=== PATIENT | male | born 1960 | race Caucasian/White ===

== ENCOUNTER 2019-04-15 04:53 | Inpatient (IN) ==
[2019-04-15] MEDS ORDERED: 0.9 % Sodium Chloride 1,000 ML ONE ×2 (05:03→05:05)
[2019-04-15] MEDS ORDERED: Heparin 1,000 UNITS/500 mL 500 ML ONE (05:03)
[2019-04-15] MEDS ORDERED: *HR* Heparin 10,000 UNIT/10 ML VIAL ONE (05:04)
[2019-04-15] MEDS ORDERED: ISOVUE-370 200 ML INFUS..BTL ONE ×4 (05:04→06:52)
[2019-04-15] MEDS ORDERED: Nitroglycerin 1,000 MCG/10 ML VIAL IV ONE (05:04)
[2019-04-15] MEDS ORDERED: *HR* Midazolam HCl 2 MG/2 ML VIAL ONE (05:20)
[2019-04-15] MEDS ORDERED: *HR* FentaNYL (PF) 100 MCG/2 ML VIAL ONE (05:20)
[2019-04-15] MEDS ORDERED: Tirofiban 12.5 MG/250ML 12.5 MG/250 ML BAG ONE (05:22)
--- NOTE | 2019-04-15 05:29 | Pre-Sedation Evaluation ---
Pre-sedation evaluation - Pre-sedation checklist Date of procedure: 04/15/19 Procedure: [facility] ASA Classification *see protocol: CLASS II-Mild systemic disease Cardiac Registry (Cardio Only) - Functional Capacity Functional Capacity: < 4 METS - Clincal Frailty Scale Clinical Frailty Scale: Vulnerable
--- NOTE | 2019-04-15 07:27 | Cardiology History & Physical ---
Date of Encounter: 04/15/19 Time of Encounter: 07:24 Assessment and Plan (1) ST elevation myocardial infarction (STEMI) of inferior wall Status: Acute The assessment and plan as outlined above was discussed with the patient and/or family members who expressed understanding and agreement. All questions were answered. Emergent LHC , ACS meds administered at [place] [facility], transferred directly to [facility] Cathlab. R/B/A d/w patient and he agrees to proceed with C History of Present Illness Chief complaint: Chest Pain HPI: Mr. Mora is a 58 year old male smoker with no significant CRF's here for Chest Pain started RSCP at 4 am ongoing unrelenting associated with SOB presented to [place] [facility] found to have Inferior STEMI transferred for emergent LHC. Full history not obtainable as patient brought to cathlab emergently with ongoing chest pain. R/B/A d/w patient and he agrees to proceed. ACS IV meds started at [place] Past Med Surg Social Fam HX - Past Medical History Medical history: no medical history Psychiatric history: no psych history - Social History Smoking Status: Current every day smoker Smokeless Tobacco Status: No Alcohol use: none Drug use: none Medications and Allergies No Known Home Drugs 04/15/19 [History] Allergy/AdvReac Type Severity Reaction Status Date / Time Penicillins [PCN] Allergy Hives Verified 04/15/19 05:05 All Systems Review: The remainder of the systems were reviewed and are negative Physical Examination General: Conversant, No Apparent Distress HEENT: Atraumatic, Normocephaly, Mucus Membranes Moist Neck: No JVD, Normal carotid pulses Cardiac: Reg Rate and Rhythm, Normal S1 and S2, No Murmur Lungs: Normal Breath Sounds, No Wheeze, Rales, Rhonchi Neuro: Alert and responsive, No focal deficits noted Abdomen: Soft, Non-Tender Skin: No rashes noted on visualized skin Musculoskeletal: No Chest Wall Tenderness Extremities: No Clubbing, No Cyanosis, No Edema, Normal Pulses
[2019-04-15] MEDS ORDERED: Tirofiban 12.5 MG/250ML 12.5 MG/250 ML BAG IVC SCH (07:30)
--- NOTE | 2019-04-15 07:47 | Invasive Diagnostic Lab Proc ---
Name: Rupal Mora Date of Study: 04/15/2019 Date: 1960 Ht: 70.1in Medical Record#: [id number] Age: 58 Wt: 224.87lb Gender: Male BSA: 2.2 Order #: [id number] BMI: 32.19 Physicians Procedure Physician: Patricia Robertson MD Referring MD: Referring MD: Staff Name Position Time In Jenaro Moy RN Monitor 05:33 AM Melinda Hilton RT (R) Scrub 05:33 AM Lanette Adam RT (R) Scrub 05:33 AM Nirmala Gutiérrez RN Porcelain Enamel Repairer 05:33 AM Indications Indication STEMI Procedures Performed Procedure L HRT ARTERY/VENTRICLE ANGIO PRQ CARD REVASC MO 1 VSL Pre-Procedure Checklist Pt not NPO for procedure and MD aware. Plan of Care Patient will tolerate the procedure without complications. Adequate level of comfort will be maintained. Hemodynamics will remain stable Patient will recover from procedure without complications. Respiratory function will be maintained. Cardiac rhythm will remain stable. Patient temperature will be maintained. Patient and/or family have verbalized understanding of the procedure. Patient Education Allergies Penicillins Vital Signs Time BP (mmHg) HR (bpm) O2 Sat. RR (bpm) LOC 05:34 AM / % 5 = Fully awake and oriented or at pre-proc level 05:34 AM / % 4 = Oriented but drowsy 05:49 AM / % 4 = Oriented but drowsy 06:04 AM / % 4 = Oriented but drowsy 06:19 AM / % 4 = Oriented but drowsy 06:35 AM / % 4 = Oriented but drowsy 05:32 AM 135 / 99 78 99 % 46 05:37 AM 146 / 85 76 98 % 18 05:42 AM 144 / 75 67 95 % 10 05:47 AM 143 / 93 76 95 % 16 05:52 AM 141 / 93 78 95 % 14 05:57 AM 147 / 90 80 96 % 15 06:02 AM 149 / 91 73 96 % 13 06:07 AM 143 / 89 71 96 % 15 06:12 AM 149 / 98 73 96 % 16 06:17 AM 149 / 98 75 96 % 16 06:22 AM 84 / 58 73 99 % 12 06:28 AM 74 / 49 70 98 % 12 06:33 AM 122 / 78 68 96 % 13 06:37 AM 95 / 69 63 94 % 15 06:42 AM 100 / 54 72 95 % 18 06:47 AM 102 / 63 65 94 % 15 06:52 AM 101 / 57 68 94 % 13 06:57 AM 100 / 65 68 95 % 12 07:02 AM 110 / 68 68 95 % 16 Procedural Medications Time Medication Dose Units Method Given By 05:34 AM Oxygen 2 L/min nasal cannula Nirmala Gutiérrez RN 05:34 AM Versed 1 mg Intravenous Nirmala Gutiérrez RN 05:34 AM Fentanyl 50 mcg Intravenous Nirmala Gutiérrez RN 05:36 AM Lidocaine 2% 18 ml Subcutaneous DrLarry Mousserica 05:43 AM Aggrastat Bolus: 50 ml Intravenous DecNirmala michel RN 05:43 AM Aggrastat 12.5mg/250ml 18 ml Intravenous Nirmala Gutiérrez RN 06:22 AM Atropine 0.25 mg Intravenous Nirmala Gutiérrez RN 06:39 AM Heparin 1000 units Intravenous Nirmala Gutiérrez RN 06:39 AM Nitroglycerin 200 mcg Intracoronary Bee Robertson MD 06:42 AM Nitroglycerin 150 mcg Intracoronary Bee Robertson MD 06:48 AM Nitroglycerin 200 mcg Intracoronary JaimeussBee maldonado MD 07:05 AM Versed 1 mg Intravenous Nirmala Gutiérrez RN 07:05 AM Fentanyl 50 mcg Intravenous Nirmala Gutiérrez RN ASA Classification: CLASS II- Mild systemic disease (i.e. well-controlled diabetes, hypertension, asthma, cigarette smoking) Emergent Procedure: ASA score is assumed Karla Score Preprocedure Postprocedure Activity 2- Moves 4 extremities sustained head lift Activity 2- Moves 4 extremities sustained head lift Circulation 2- SBP +/= 20 points of pre-anesthetic level Circulation 2- SBP +/= 20 points of pre-anesthetic level Consciousness 2- Awake and alert oriented x 3 Consciousness 2- Awake and alert oriented x 3 O2 Saturation 2- Able to maintain O2 satruation of 92% on room air O2 Saturation 2- Able to maintain O2 satruation of 92% on room air Respiratory 2- Able to deep breathe and cough well Respiratory 2- Able to deep breathe and cough well Total Score 10 Total Score 10 Contrast Agent: Isovue Diagnostic Contrast: 350 ml Total Contrast: 350 ml Fluoro Dose: 180 mGy Activated Clotting Time Time Seconds to Clot 05:45 AM 237 Procedure Log Time Note Enter By 05:22 AM STEMI from Jose Manuel GRACE cedwards 05:32 AM Vitals capture started with the following parameters, Patient=Adult, Interval=5 min, Initial Urpubsgr=512 mmHg, Deflation Rate=5 mmHg, Cuff placed on Left Arm 05:32 AM CathStat 05:32 AM Recorded ECG: HR=85 Condition=Condition 1 05:32 AM HR=78 bpm, ARTA=316/99 mmhg, SpO2=99 %, Resp=46 B/min 05:33 AM 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 cedwards 05:33 AM Hair removed from procedure site in procedure lab using clippers. Bilateral groin prepped with Chloraprep by Nirmala Gutiérrez RN, then patient was draped. Skin intact. cedwards 05:33 AM Physician arrived 05:33 cedwards 05:33 AM ASA Class CLASS II- Mild systemic disease (i.e. well-controlled diabetes, hypertension, asthma, cigarette smoking) cedwards 05:33 AM Kerri completed cedwards 05:34 AM Procedure start 05:34 cedwards 05:34 AM Time: 05:34 Oxygen on at 2 L/min per nasal cannula by Nirmala Gutiérrez RN cedwards 05:34 AM Time: 05:34 Versed 1 mg Intravenous Given by Nirmala Gutiérrez RN cedwards :34 AM Time: 05:34 Fentanyl 50 mcg Intravenous Given by Nirmala Gutiérrez RN cedwards 05:34 AM Time: 05:34 Patient comfortable and pain free: Yes cedwards 05:34 AM Time: 05:34LOC: 5 = Fully awake and oriented or at pre-proc level cedwards 05:34 AM Clinical Presentation: STEMI or equivalent cedwards 05:34 AM Time out was performed according to hospital policy. Conscious sedation and anesthesia was achieved (see medication log with in this report above) cedwards 05:35 AM Patient with 4 out of 10 chest pain cedwards 05:37 AM Time: 05:36 18 ml Lidocaine 2% to right groin Subcutaneous Given by Dr. Robertson cedwards 05:37 AM Micro-Introducer Kit utilized for sheath placement cedwards 05:37 AM HR=76 bpm, XOOM=718/85 mmhg, SpO2=98.0 %, Resp=18 B/min 05:38 AM Access obtained by percutaneous puncture. 6Fr 10cm Terumo [place] sheath placed in right Femoral artery. [id number] cedwards 05:39 AM 5Fr FL 4 catheter inserted over the wire [facility] cedwards 05:39 AM 0.035 145cm Navilyst 3mmJ wire [id number] cedwards 05:40 AM Recorded Pressure: Ao, HR=75, Condition=Condition 1 (Aorta) Ao 138/84/108 05:40 AM LCA angiography performed in multiple views. cedwards 05:41 AM Catheter removed cedwards 05:41 AM 6Fr JR 4 Runway guide catheter was used to cannulate the PCI vessel successfully. reused? No cedwards 05:41 AM Inflation device was opened. cedwards 05:42 AM RCA angiography performed in multiple views. cedwards 05:42 AM Recorded Pressure: Ao, HR=71, Condition=Condition 1 (Aorta) Ao 144/84/110 05:42 AM HR=67 bpm, RQFI=160/75 mmhg, SpO2=95.0 %, Resp=10 B/min 05:43 AM Time: 05:43 Aggrastat Bolus: 50 ml Intravenous Given by Nirmala Gutiérrez RN Acosta pump cedwards 05:43 AM Time: 05:43 Aggrastat 12.5mg/250ml 18 ml Intravenous Given by Nirmala Gutiérrez RN Acosta pump cedwards 05:44 AM .014 [employer] 190cm guide wire across target lesion- successful. reused? No cedwards 05:44 AM Lesion found in Mid RCA. Pre Stenosis: 100 Pre ALL Flow: 0: No Flow/No perfusion cedwards 05:45 AM At 05:45 the ACT was 237 seconds. cedwards 05:45 AM 2.0 mm x 12 mm Emerge Monorail balloon across target lesion- successful. reused? No cedwards 05:47 AM HR=76 bpm, GTGC=416/93 mmhg, SpO2=95.0 %, Resp=16 B/min 05:49 AM Time: 05:34 Patient comfortable and pain free: No cedwards 05:49 AM Time: 05:34LOC: 4 = Oriented but drowsy cedwards 05:52 AM HR=78 bpm, GVXH=532/93 mmhg, SpO2=95.0 %, Resp=14 B/min 05:53 AM Recorded Pressure: Ao, HR=79, Condition=Condition 1 (Aorta) Ao 142/87/113 05:53 AM Balloon catheter removed intact. unable to advance cedwards 05:53 AM Guide wire removed intact. unable to advance cedwards 05:53 AM .014 Healthcare Facility Administrator 50 190cm guide wire across target lesion- successful. reused? No cedwards 05:57 AM HR=80 bpm, WSIK=028/90 mmhg, SpO2=96.0 %, Resp=15 B/min 06:01 AM Turnpike LP Catheter advanced cedwards 06:01 AM Recorded Pressure: Ao, HR=75, Condition=Condition 1 (Aorta) Ao 140/88/111 06:02 AM HR=73 bpm, OEZJ=535/91 mmhg, SpO2=96.0 %, Resp=13 B/min 06:03 AM Guide wire removed intact. unable to cross cedwards 06:04 AM .014 Whisper 300cm guide wire across target lesion- successful. reused? No cedwards 06:04 AM Recorded Pressure: Ao, HR=74, Condition=Condition 1 (Aorta) Ao 141/90/112 06:04 AM Time: 05:49LOC: 4 = Oriented but drowsy cedwards 06:04 AM Time: 05:49 Patient comfortable and pain free: No cedwards 06:07 AM HR=71 bpm, PHTI=720/89 mmhg, SpO2=96.0 %, Resp=15 B/min 06:09 AM Recorded Pressure: Ao, HR=74, Condition=Condition 1 (Aorta) Ao 140/89/112 06:12 AM HR=73 bpm, DCTV=198/98 mmhg, SpO2=96.0 %, Resp=16 B/min 06:12 AM Recorded Pressure: Ao, HR=76, Condition=Condition 1 (Aorta) Ao 142/90/113 06:14 AM Recorded ECG: HR=76 Condition=Condition 1 06:15 AM Chest pain rated at a 4, states just uncomfortable. cedwards 06:17 AM HR=75 bpm, ENVA=723/98 mmhg, SpO2=96.0 %, Resp=16 B/min 06:18 AM 2.0 mm x 12 mm Emerge Monorail balloon across target lesion- successful. reused? Yes cedwards 06:19 AM Recorded Pressure: Ao, HR=75, Condition=Condition 1 (Aorta) Ao 144/90/113 06:19 AM Time: 06:04 Patient comfortable and pain free: No cedwards 06:19 AM Time: 06:04LOC: 4 = Oriented but drowsy cedwards 06:20 AM Balloon inflated @ 6 andi for 6 seconds cedwards 06:20 AM Balloon inflated @ 6 andi for 6 seconds cedwards 06:21 AM Balloon inflated @ 6 andi for 14 seconds cedwards 06:21 AM Balloon inflated @ 8 andi for 9 seconds cedwards 06:22 AM HR=73 bpm, NIBP=84/58 mmhg, SpO2=99.0 %, Resp=12 B/min 06:23 AM Time: 06:22 Atropine 0.25 mg Intravenous Given by Nirmala Gutiérrez RN cedwards 06:25 AM 3.0mm x 16mm Synergy drug-eluting stent across target lesion- successful Lot #[id number] cedwards 06:27 AM Stent deployed @ 9 andi for 6 seconds cedwards 06:27 AM Stent balloon reinflated @ 14 andi for 10 seconds cedwards 06:28 AM HR=70 bpm, NIBP=74/49 mmhg, SpO2=98.0 %, Resp=12 B/min 06:28 AM Stent delivery system removed intact. cedwards 06:29 AM Recorded Pressure: Ao, HR=81, Condition=Condition 1 (Aorta) Ao 85/64/72 06:30 AM Lesion found in Proximal RCA. Pre Stenosis: 70 Pre ALL Flow: 3: Complete and Brisk Flow/Perfusion cedwards 06:30 AM 3.5mm x 20mm Synergy drug-eluting stent across target lesion- successful Lot #[id number] cedwards 06:32 AM Recorded Pressure: Ao, HR=67, Condition=Condition 1 (Aorta) Ao 112/71/89 06:33 AM HR=68 bpm, NBCM=228/78 mmhg, SpO2=96.0 %, Resp=13 B/min 06:34 AM Recorded Pressure: Ao, HR=66, Condition=Condition 1 (Aorta) Ao 117/67/90 06:35 AM Time: 06:19LOC: 4 = Oriented but drowsy cedwards 06:35 AM Time: 06:19 Patient comfortable and pain free: Yes cedwards 06:37 AM HR=63 bpm, NIBP=95/69 mmhg, SpO2=94.0 %, Resp=15 B/min 06:37 AM Stent deployed @ 9 andi for 10 seconds cedwards 06:38 AM Stent balloon reinflated @ 14 andi for 6 seconds cedwards 06:38 AM Recorded Pressure: Ao, HR=64, Condition=Condition 1 (Aorta) Ao 82/51/65 06:39 AM Stent delivery system removed intact. cedwards 06:39 AM Time: 06:39 Heparin 1000 units Intravenous Given by Nirmala Gutiérrez RN cedwards 06:40 AM Time: 06:39 Nitroglycerin 200 mcg Intracoronary Given by eBe Robertson MD cedwards 06:41 AM Guide wire removed intact. cedwards 06:42 AM Time: 06:42 Nitroglycerin 150 mcg Intracoronary Given by Bee Robertson MD cedwards 06:42 AM HR=72 bpm, BCQA=709/54 mmhg, SpO2=95.0 %, Resp=18 B/min 06:42 AM Recorded Pressure: Ao, HR=75, Condition=Condition 1 (Aorta) Ao 68/47/55 06:45 AM Patient with minor chest pain rated at a 4. cedwards 06:46 AM Recorded ECG: HR=68 Condition=Condition 1 06:47 AM HR=65 bpm, OKBQ=734/63 mmhg, SpO2=94.0 %, Resp=15 B/min 06:48 AM Time: 06:48 Nitroglycerin 200 mcg Intracoronary Given by Bee Robertson MD cedwards 06:50 AM Time: 06:35 Patient comfortable and pain free: No cedwards 06:50 AM Time: 06:35LOC: 4 = Oriented but drowsy cedwards 06:50 AM .014 [employer] 190cm guide wire across target lesion- successful. reused? No cedwards 06:51 AM Lesion found in Right PDA. Pre Stenosis: 70 Pre ALL Flow: 3: Complete and Brisk Flow/Perfusion cedwards 06:52 AM HR=68 bpm, SFRU=191/57 mmhg, SpO2=94.0 %, Resp=13 B/min 06:53 AM 2.0 mm x 8 mm Emerge Monorail balloon across target lesion- successful. reused? No cedwards 06:57 AM Balloon catheter removed intact. undeployed cedwards 06:57 AM HR=68 bpm, LRBL=725/65 mmhg, SpO2=95.0 %, Resp=12 B/min 06:58 AM Recorded Pressure: Ao, HR=62, Condition=Condition 1 (Aorta) Ao 84/57/69 07:00 AM Guide catheter removed intact. cedwards 07:00 AM Recorded Pressure: LV, HR=77, Condition=Condition 1 (Left Ventricle) LV 89/5/9 07:00 AM 5Fr Pigtail catheter inserted over the wire [facility] cedwards 07:00 AM Catheter crossed the aortic valve and was selectively placed in the left ventricle. Pressures recorded on pullback for left heart catheterization. cedwards 07:01 AM Recorded Pressure: LV, Ao, HR=70, Condition=Condition 1 (Left Ventricle) LV 88/-1/10, (Aorta) Ao 96/62/77 07:01 AM Bolus angiogram of Left Ventricle complete, hand injection cedwards 07:02 AM Catheter removed cedwards 07:02 AM HR=68 bpm, GPAM=824/68 mmhg, SpO2=95 %, Resp=16 B/min 07:05 AM Time: 07:05 Versed 1 mg Intravenous Given [facility] 07:05 AM Time: 07:05 Fentanyl 50 mcg Intravenous Given by Nirmala Gutiérrez RN cedwards 07:12 AM Coronary Dominance: right cedwards 07:13 AM Procedure completed at 07:13 04/15/2019 cedwards 07:13 AM Did you address ALL flow and Dominance? YesCoronary Dominance: right cedwards 07:15 AM Sign out completed: Radiation Dose 1499.56 mGy, 180 Gy/cm2 Fluoro Time: 39.4 Isovue 370 - 200ml contrast 350 ml given by Patricia Robertson MD. Complications: None. 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 Sedation minutes 90. Cardiac Rehab Consult needed: Yes. Confirmed administered medications: Yes cedwards 07:16 AM Isovue 370 - 200ml,3 Bottle(s) used. cedwards 07:16 AM Arterial sheath pulled, Angio-seal closure device used and was Successful [id number] S/N. cedwards 07:16 AM Estimated Blood Loss: minimal cedwards 07:16 AM Post ECG NSR cedwards 07:16 AM Post Blood Pressure 93/58 cedwards 07:16 AM Information taught Cardiac Cath, PCI, and Angioseal cedwards 07:17 AM Education needs Procedure, Plan of Care, and Disease Process cedwards 07:17 AM Learning barriers :None cedwards 07:17 AM Education Methods Verbal cedwards 07:17 AM Education evaluation Able to repeat information cedwards 07:17 AM Site status No bleeding/hematoma - Rt Groin as reported by Sites, Lanette RT (R) at 07:17 cedwards 07:17 AM Opsite applied cedwards 07:17 AM Family placed in consult room. cedwards 07:17 AM Complications: None cedwards 07:23 AM Report given to Shy LOPEZ Pt taken to ICU Room #9. 07:23 cedwards 07:27 AM Patient out of room: 07:25 cedwards 07:29 AM Lesion found in Proximal LAD. Pre Stenosis: 40 Pre ALL Flow: cedwards 07:29 AM Lesion found in Mid LAD. Pre Stenosis: 80 Pre ALL Flow: cedwards 07:30 AM Lesion found in 1st Marginal. Pre Stenosis: 50 Pre ALL Flow: cedwards 07:30 AM Lesion found in 2nd Marginal. Pre Stenosis: 60 Pre ALL Flow: cedwards Complications Complication None None Hemodynamics Pressures Site Systolic/A Wave Diastolic/V Wave Mean AO 138 84 108 AO 144 84 110 AO 142 87 113 AO 140 88 111 AO 141 90 112 AO 140 89 112 AO 142 90 113 AO 144 90 113 AO 85 64 72 AO 112 71 89 AO 117 67 90 AO 82 51 65 AO 68 47 55 AO 84 57 69 LV 89 5 9 LV 88 -1 10 AO 96 62 77 Post Procedure Information Blood Pressure: 93/58 mmHg Rhythm: NSR Post procedural instructions were given Closure Device Time Device Success/Fail 04/15/2019 7:24:00 AM Angio-Seal VIP Successful Site Checks Time Location Status Staff Sheath In? Note 07:17 AM Rt Groin No bleeding/hematoma Sites, Lanette RT (R) Pulses Updated by Jenaro Moy RN on 04/15/2019 7:39:02 AM electronically signed on 04/15/2019 7:39:50 AM with status of Final
[2019-04-15] MEDS: *HR* Ticagrelor 90 MG TABLET PO SCH ×2 (07:50→20:25)
[2019-04-15] MEDS: Aspirin 81 MG TAB.CHEW PO SCH (07:50)
[2019-04-15] MEDS ORDERED: *HR* Atropine Sulfate 1 MG/10 ML SYRINGE IV ONE (08:26)
--- NOTE | 2019-04-15 09:29 | Event Note ---
Date of Encounter: 04/15/19 Time of Encounter: 09:24 - Cardiology Event Note Presented this AM as inferior STEMI, taken emergently to label stitcher. 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 EF 55%. Patient had successful PTCA/Drug-Eluting Stent placement in the proximal and mid RCA. Severe disease of the RPDA and LAD to be staged a ccording to hospital course. Pt currently lying in bed comfortably. Denies any active chest pain. TTE pending. DAPT (ASA and Brilinta) uninterrupted x 1 year. Statin, BB. Will follow-up tomorrow AM.
--- NOTE | 2019-04-15 10:29 | Electrocardiograph Report ---
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
[2019-04-15] MEDS ORDERED: Perflutren Lipid Microsphere 1.3 ML in 0.9 % Sodium Chloride 8.7 ML IVP ONE (13:38)
[2019-04-16 06:18] LABS: Basophils % 0.5 %; Eosinophils # 0.1 K/mcL (0.0-0.6); Eosinophils % 1.4 %; Hematocrit 42.2 % (37.5-50.1); Immature Granulocytes % 0.6 % (0-4); Lymphocytes # 3.2 K/mcL (0.6-4.6); Lymphocytes % 37.1 %; Mean Corpuscular HGB Conc 33.2 g/dL (31.6-35.5); Mean Corpuscular Hemoglobin 29.3 pg (28.0-33.3); Mean Corpuscular Volume 88.3 fL (83.0-100.0); Mean Platelet Volume 9.6 fL (9.4-12.4); Monocytes # 0.8 K/mcL (0.0-1.3); Monocytes % 9.3 %; Neutrophils # 4.4 K/mcL (1.6-8.9); Platelet Count 218 K/mcL (140-400); Red Blood Count 4.78 M/mcL (4.19-5.50); Red Cell Distribution Width 13.9 % (11.5-14.5); Segmented Neutrophils % 51.1 %; White Blood Count 8.5 K/mcL (4.3-11.1)
[2019-04-16 06:40] LABS: BUN/Creatinine Ratio 14 (6-26); Blood Urea Nitrogen 15 mg/dL (8-23); Calcium 8.9 mg/dL (8.6-10.3); Carbon Dioxide 25 mEq/L (23-29); Chloride 107 mEq/L (98-107); Glucose 120 mg/dL (70-105); Osmolality,Calculated 290 (280-300); Potassium 4.3 mEq/L (3.5-5.1); Sodium 139 mEq/L (136-145); eGFR For African Americans > 60 (> 60); eGFR For Non-African Americans > 60 (> 60)
[2019-04-16] MEDS: Aspirin 81 MG TAB.CHEW PO SCH (07:32)
[2019-04-16] MEDS: *HR* Ticagrelor 90 MG TABLET PO SCH ×2 (07:32→20:08)
--- NOTE | 2019-04-16 08:34 | Event Note ---
Date of Encounter: 04/16/19 Time of Encounter: 08:33 - Cardiology Event Note Labs and vitals stable. Plan for [facility] today for staged PCI of LAD. R/B/A discussed. Pt agrees to proceed.
[2019-04-16] MEDS ORDERED: *HR* Heparin 5,000 UNIT/ML VIAL SQ SCH (08:45)
--- NOTE | 2019-04-16 09:38 | Cardiology Progress Note ---
Date of Encounter: 04/16/19 Time of Encounter: 09:35 Assessment and Plan (1) ST elevation myocardial infarction (STEMI) of inferior wall Current Visit: No Status: Acute Presented 04/15 AM as inferior STEMI, taken emergently to [facility]. C revealed severe 2V CAD. EF 55%. Patient had successful PTCA/Drug-Eluting Stent placement in the proximal and mid RCA. Severe disease of the RPDA and LAD to be staged according to hospital course. Pt denies chest pain or dyspnea overnight. No events on tele. Labs and vitals stable. DAPT (ASA and Brilinta) uninterrupted x 1 year. Statin, BB. TTE LVEF 55-60%. Normal LV chamber size, wall thickness and overall function. Mild LVDD. Normal RV structure and function. Unable to estimate RVSP due to lack of TR jet. No significant valvular dysfunction. Right femoral access site healing well. No bleeding, hematoma or ecchymosis noted. Dr. Melinda Ramesh reviewed films. Recommends inpt staging of LAD lesion. 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 Will discuss and review with Dr. Robertson in AM. Discussion w patient/family: The assessment and plan as outlined above was discussed with the patient and/or family members who expressed understanding and agreement. All questions were answered. Thank you for involving us in the care of your patient. Please call with any questions. I will discuss all the above with Dr. Fang and make changes as necessary. Subjective Principal diagnosis: STEMI Interval history: No acute complaints this AM. Objective Vital Signs, Last 4 Hours Temp Pulse Resp BP Pulse Ox 04/16/19 09:00 68 12 131/90 98 04/16/19 08:00 98.9 F 72 22 125/92 97 04/16/19 07:00 80 16 136/115 98 04/16/19 06:00 76 16 125/90 96 Vital Signs Temp Pulse Resp BP Pulse Ox 04/16/19 09:00 68 12 131/90 98 04/16/19 08:00 98.9 F 72 22 125/92 97 04/16/19 07:00 80 16 136/115 98 04/16/19 06:00 76 16 125/90 96 04/16/19 05:00 67 16 112/56 96 04/16/19 04:00 62 16 117/90 95 04/16/19 03:52 98.7 F 04/16/19 03:00 65 16 113/75 94 04/16/19 02:00 76 16 97/56 96 04/16/19 01:00 66 17 108/61 94 04/16/19 00:00 99.1 F 78 16 131/87 95 04/15/19 23:00 68 16 112/78 92 04/15/19 22:00 94 16 118/77 95 04/15/19 21:00 99 16 130/82 95 04/15/19 20:00 95 16 149/84 95 04/15/19 19:00 86 16 136/97 95 04/15/19 18:40 99.4 F 04/15/19 18:00 82 15 115/64 95 04/15/19 17:00 82 20 126/80 95 04/15/19 16:00 62 17 125/70 96 04/15/19 15:00 77 20 115/78 98 04/15/19 14:00 80 18 122/70 96 04/15/19 13:00 68 17 132/78 98 04/15/19 12:00 65 12 119/87 98 04/15/19 11:45 97.9 F 04/15/19 11:00 52 17 110/83 96 04/15/19 10:00 51 12 120/80 96 Intake and Output 04/15/19 04/16/19 04/16/19 23:59 07:59 15:59 Intake Total 0 / 0 Output Total 750 / 2000 200 / 1000 800 / 1000 Balance -750 / -2000 -200 / -1000 -800 / -1000 Intake: Oral 0 / 0 Output: Urine 750 / 2000 200 / 1000 800 / 1000 Other: # Voids 1 1 Weight 105.9 kg Patient Weight 04/16/19 23:59 Weight 105.9 kg General: Conversant, No Apparent Distress HEENT: Atraumatic, Normocephaly, Mucus Membranes Moist Neck: No JVD, Normal carotid pulses Cardiac: Reg Rate and Rhythm, Normal S1 and S2, No Murmur Lungs: Normal Breath Sounds, No Wheeze, Rales, Rhonchi Neuro: Alert and responsive, No focal deficits noted Abdomen: Soft, Non-Tender Skin: No rashes noted on visualized skin Musculoskeletal: No Chest Wall Tenderness Extremities: No Clubbing, No Cyanosis, No Edema, Normal Pulses Results 04/16/19 05:39 04/16/19 05:39 Lab Results 04/16/19 04/16/19 05:39 05:39 WBC 8.5 Hgb 14.0 Hct 42.2 Plt Count 218 Sodium 139 Potassium 4.3 Chloride 107 Carbon Dioxide 25 BUN 15 Creatinine 1.05 Glucose 120 H Calcium 8.9 Short CBC 04/16/19 Range/Units 05:39 WBC 8.5 (4.3-11.1) K/mcL Hgb 14.0 (12.9-16.9) g/dL Hct 42.2 (37.5-50.1) % Plt Count 218 (140-400) K/mcL Neutrophils # 4.4 (1.6-8.9) K/mcL BMP 04/16/19 Range/Units 05:39 Sodium 139 (136-145) mEq/L Potassium 4.3 (3.5-5.1) mEq/L Chloride 107 (98-107) mEq/L Carbon Dioxide 25 (23-29) mEq/L BUN 15 (8-23) mg/dL Creatinine 1.05 (0.70-1.30) mg/dL Glucose 120 H (70-105) mg/dL Calcium 8.9 (8.6-10.3) mg/dL Impressions Echocardiogram 04/15/19 07:22 Impressions: LVEF 55-60%. Normal LV chamber size, wall thickness and overall function. Mild left ventricular diastolic dysfunction. Normal right ventricular structure and function. Unable to estimate RVSP due to lack of TR jet. No significant valvular dysfunction. Left Ventricular Wall Motion: Rest Echo Findings The basal inferior wall was hypokinetic. All other wall segments showed normal motion. Findings: Study Quality * Technically adequate exam. ECG Findings * Normal sinus rhythm. Left Ventricle * LVEF 55-60%. * Normal LV chamber size, wall thickness and overall function. * Mild left ventricular diastolic dysfunction. Right Ventricle * Normal right ventricular structure and function. Left Atrium * Mildly dilated left atrium. Right Atrium * Mildly dilated right atrium. Interatrial Septum * Interatrial septum not well evaluated. Aortic Valve * Trileaflet aortic valve. * Mildly calcified aortic valve leaflets. * No aortic regurgitation. * No aortic stenosis. Mitral Valve * Normal mitral valve structure and function. * No mitral stenosis. * No mitral regurgitation. Tricuspid Valve * Normal tricuspid valve structure and function. * No tricuspid regurgitation. * Unable to estimate RVSP due to lack of TR jet. Pulmonic Valve * Normal pulmonic valve structure and function. * Trace pulmonic regurgitation. Aorta * Normally sized aortic root. Pericardium * The pericardium appears normal. IVC * Normal IVC dimensions and inspiratory collapse. Pulmonary Artery * Pulmonary artery not well visualized. Active Medications Aspirin (Aspirin) 81 mg PO DAILY ELLIE Stop: 10/15/19 09:01 Last Admin: 04/16/19 07:32 Dose: 81 mg Documented by: Atorvastatin Calcium (Lipitor) 80 mg PO HS ELLIE Stop: 10/15/19 21:01 Last Admin: 04/15/19 20:25 Dose: 80 mg Documented by: Heparin Sodium (Porcine) (Heparin) 5,000 unit SQ Q12HCO ELLIE Stop: 10/16/19 08:46 Metoprolol Tartrate (Lopressor) 25 mg PO BID ELLIE Stop: 10/15/19 21:01 Last Admin: 04/16/19 07:32 Dose: 25 mg Documented by: Ticagrelor (Brilinta) 90 mg PO BID ELLIE Stop: 10/15/19 09:01 Last Admin: 04/16/19 07:32 Dose: 90 mg Documented by: - Imaging and Cardiology Echo: report reviewed Cardiac cath: report reviewed - EKG Interpretation EKG results cardiology: other (SR) Consult Discharge Plan - Plan Referrals: NONE,PCP [Primary Care Provider] -
[2019-04-16] MEDS ORDERED: Perflutren Lipid Microsphere 1.3 ML in 0.9 % Sodium Chloride 8.7 ML IVP ONE (13:34)
[2019-04-16] MEDS: *HR* Heparin 5,000 UNIT/ML VIAL SQ SCH (18:26)
[2019-04-17] MEDS: *HR* Heparin 5,000 UNIT/ML VIAL SQ SCH ×2 (05:07→17:14)
[2019-04-17] MEDS: *HR* Ticagrelor 90 MG TABLET PO SCH ×2 (08:16→21:49)
[2019-04-17] MEDS: Aspirin 81 MG TAB.CHEW PO SCH (08:16)
--- NOTE | 2019-04-17 09:53 | Event Note ---
Date of Encounter: 04/17/19 Time of Encounter: 09:50 - Cardiology Event Note Laboratory Tests 04/16/19 04/16/19 05:39 05:39 Hgb 14.0 Hct 42.2 Creatinine 1.05 Est GFR (Non-Af Amer) > 60 LHC: Impressions: There is severe two vessel coronary artery disease. The left ventricle is and has contractility EF 55% Patient had successful PTCA/Drug-Eluting Stent placement in the proximal and mid RCA. Severe disease of the RPDA and LAD alon staged according to hospital course ECHO: Impressions: LVEF 55-60%. Normal LV chamber size, wall thickness and overall function. Mild left ventricular diastolic dysfunction. Normal right ventricular structure and function. Unable to estimate RVSP due to lack of TR jet. No significant valvular dysfunction. Left Ventricular Wall Motion: Rest Echo Findings The basal inferior wall was hypokinetic. All other wall segments showed normal motion. Active Medications Aspirin (Aspirin) 81 mg PO DAILY ELLIE Stop: 10/15/19 09:01 Last Admin: 04/17/19 08:16 Dose: 81 mg Documented by: Atorvastatin Calcium (Lipitor) 80 mg PO HS ELLIE Stop: 10/15/19 21:01 Last Admin: 04/16/19 20:09 Dose: 80 mg Documented by: Heparin Sodium (Porcine) (Heparin) 5,000 unit SQ Q12HCO ELLIE Stop: 10/16/19 08:46 Last Admin: 04/17/19 05:07 Dose: 5,000 unit Documented by: Metoprolol Tartrate (Lopressor) 25 mg PO BID ELLIE Stop: 10/15/19 21:01 Last Admin: 04/17/19 08:16 Dose: 25 mg Documented by: Ticagrelor (Brilinta) 90 mg PO BID ELLIE Stop: 10/15/19 09:01 Last Admin: 04/17/19 08:16 Dose: 90 mg Documented by: Chest pain-free this morning. Patient agreeable to staged PCI of LAD today.
[2019-04-17] MEDS ORDERED: 0.9 % Sodium Chloride 1,000 ML ONE ×2 (14:38→14:39)
[2019-04-17] MEDS ORDERED: ISOVUE-370 200 ML INFUS..BTL ONE ×2 (14:38→15:39)
[2019-04-17] MEDS ORDERED: *HR* Heparin 10,000 UNIT/10 ML VIAL ONE (14:38)
[2019-04-17] MEDS ORDERED: Heparin 1,000 UNITS/500 mL 500 ML ONE (14:38)
[2019-04-17] MEDS ORDERED: Nitroglycerin 1,000 MCG/10 ML VIAL IV ONE (14:38)
[2019-04-17] MEDS ORDERED: *HR* FentaNYL (PF) 100 MCG/2 ML VIAL ONE (15:07)
[2019-04-17] MEDS ORDERED: *HR* Midazolam HCl 2 MG/2 ML VIAL ONE (15:07)
[2019-04-17] MEDS ORDERED: Tirofiban 12.5 MG/250ML 12.5 MG/250 ML BAG ONE (15:20)
[2019-04-17] MEDS ORDERED: Tirofiban 12.5 MG/250ML 12.5 MG/250 ML BAG IVC SCH (16:15)
--- NOTE | 2019-04-17 16:25 | Invasive Diagnostic Lab Proc ---
Name: Rupal Mora Date of Study: 04/17/2019 Date: 1960 Ht: 72.0in Medical Record#: [id number] Age: 58 Wt: 233.91lb Gender: Male BSA: 2.28 Order #: [id number] BMI: 31.72 Physicians Procedure Physician: Patricia Robertson MD Referring MD: Referring MD: Staff Name Position Time In James Sandy RN Monitor 03:06 PM Juan J Pedroza RN Pegger Dobby Looms 03:06 PM Roger Win RT (R) Scrub 03:06 PM Melinda Hilton RT (R) Rt orientee 03:09 PM Procedures Performed Procedure PRQ CARD JESSE STENT W/ANGIO 1 VSL CORONARY ARTERY ANGIO S&I Pre-Procedure Checklist Informed consent is complete signed and on chart. H&P is on chart. ID band is on and ID verified with patient. Patient NPO for procedure The procedure was described for the patient and questions were answered. Blood Pressure: 120/75 ECG is on chart. Rhythm: NSR Plan of Care Patient will tolerate the procedure without complications. Adequate level of comfort will be maintained. Hemodynamics will remain stable Patient will recover from procedure without complications. Respiratory function will be maintained. Cardiac rhythm will remain stable. Patient temperature will be maintained. Patient and/or family have verbalized understanding of the procedure. Patient Education Chief Complaint/Reason for Test: Cardiac Cath Developmental Category: Adult (18-64 years) Developmentally Appropriate for Age: Yes Learning Barriers: None Education Needs: Procedure Education Method: Verbal Information Taught: Cardiac Cath Educational Evaluation: Able to repeat information Intravenous Access Time IV Size Location DC'd Fluid/Drip Rate Units RN 20g 1 1/4" Patent On Arrival Lt Hand 0.9NaCl 25 ml/hr 20g 1 1/4" Patent On Arrival Rt Antecubital Allergies Penicillins Vital Signs Time BP (mmHg) HR (bpm) O2 Sat. RR (bpm) LOC 03:06 PM / % 5 = Fully awake and oriented or at pre-proc level 03:06 PM / % 5 = Fully awake and oriented or at pre-proc level 03:21 PM / % 4 = Oriented but drowsy 03:36 PM / % 4 = Oriented but drowsy 03:10 PM 153 / 95 72 98 % 8 03:14 PM 128 / 84 70 96 % 15 03:19 PM 121 / 75 73 94 % 18 03:24 PM 113 / 83 65 95 % 18 03:30 PM 109 / 68 69 94 % 14 03:34 PM 116 / 78 65 94 % 17 03:39 PM 115 / 82 63 95 % 16 03:45 PM 122 / 75 63 95 % 22 03:49 PM 132 / 80 64 95 % 11 03:54 PM 123 / 79 64 95 % 19 03:59 PM 123 / 79 72 95 % 17 04:04 PM 132 / 87 71 97 % 14 03:52 PM / % 4 = Oriented but drowsy Procedural Medications Time Medication Dose Units Method Given By 03:07 PM Oxygen 2 L/min nasal cannula Juan J Pedroza RN 03:12 PM Versed 1 mg Intravenous Juan J Pedroza RN 03:12 PM Fentanyl 50 mcg Intravenous Juan J Pedroza RN 03:18 PM Lidocaine 2% 10 ml Subcutaneous Patricia Robertosn MD 03:22 PM Heparin 5000 units Intravenous Juan J Pedroza RN 03:30 PM Nitroglycerin 150 mcg Intracoronary Patricia Robertson MD 03:23 PM Aggrastat Bolus: 19.5 ml Intravenous Juan J Pedroza RN 03:28 PM Aggrastat 12.5mg/250ml 54 ml Intravenous Juan J Pedroza RN 03:56 PM Nitroglycerin 200 mcg Intracoronary Patricia Robertson MD ASA Classification: CLASS II- Mild systemic disease (i.e. well-controlled diabetes, hypertension, asthma, cigarette smoking) Karla Score Preprocedure Postprocedure Activity 2- Moves 4 extremities sustained head lift Activity Circulation 2- SBP +/= 20 points of pre-anesthetic level Circulation Consciousness 2- Awake and alert oriented x 3 Consciousness O2 Saturation 2- Able to maintain O2 satruation of 92% on room air O2 Saturation Respiratory 2- Able to deep breathe and cough well Respiratory Total Score 10 Total Score Contrast Agent: Isovue Diagnostic Contrast: 158 ml Total Contrast: 158 ml Fluoro Dose: 44 mGy Procedure Log Time Note Enter By 03:04 PM 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 Informed consent was obtained. oparker 03:05 PM ASA Class CLASS II- Mild systemic disease (i.e. well-controlled diabetes, hypertension, asthma, cigarette smoking) oparker 03:06 PM James Sandy RN Position: Monitor Time in: 15: oparker 03:06 PM Juan J Pedroza RN Position: Pegger Dobby Looms Time in: 15: oparker 03:06 PM Roger Win RT (R) Position: Scrub Time in: 15: oparker 03:06 PM Time: 15:06LOC: 5 = Fully awake and oriented or at pre-proc level oparker 03:06 PM Time: 15:06 Patient comfortable and pain free: Yes oparker 03:06 PM CathStat 03:06 PM Procedure start 15: oparker 03:07 PM Time: 15:07 Oxygen on at 2 L/min per nasal cannula by Juan J Pedroza RN oparker 03:08 PM Vitals capture started with the following parameters, Patient=Adult, Interval=5 min, Initial Vwmanedz=343 mmHg, Deflation Rate=3 mmHg, Cuff placed on Right Arm 03:09 PM Hair removed from procedure site in holding area using clippers. Bilateral groin prepped with Chloraprep by Melinda Hilton (R), then patient was draped. Skin intact. oparker 03:09 PM Melinda Hilton RT (R) Position: Rt orientee Time in: 15:09 oparker 03:10 PM HR=72 bpm, XAAK=885/95 mmhg, SpO2=98.0 %, Resp=8 B/min, Comment=SR 03:11 PM Recorded ECG: HR=74 Condition=Condition 1 03:12 PM Time: 15:12 Versed 1 mg Intravenous Given by Juan J Pedroza RN oparlary 03:13 PM Time: 15:12 Fentanyl 50 mcg Intravenous Given by Juan J Pedroza RN oparlary 03:14 PM HR=70 bpm, ZGLR=660/84 mmhg, SpO2=96.0 %, Resp=15 B/min, Comment=SR 03:18 PM Time out was performed according to hospital policy. Conscious sedation and anesthesia was achieved (see medication log with in this report above) oparker 03:19 PM HR=73 bpm, XPOF=726/75 mmhg, SpO2=94.0 %, Resp=18 B/min, Comment=SR 03:20 PM Time: 15:18 10 ml Lidocaine 2% to right groin Subcutaneous Given by MD anabel Barrientos 03:21 PM Time: 15:06 Patient comfortable and pain free: Yes oparker 03:21 PM Time: 15:06LOC: 5 = Fully awake and oriented or at pre-proc level oparker 03:21 PM Micro-Introducer Kit utilized for sheath placement oparker 03:22 PM Access obtained by percutaneous puncture. 6Fr 10cm Terumo Strong sheath placed in right Femoral artery. [id number] oparker 03:22 PM 0.035 145cm Navilyst 3mmJ wire [id number] oparker 03:22 PM 5Fr FR 4 catheter inserted over the wire DNC oparker 03:22 PM RCA angiography performed in multiple views. oparker 03:22 PM Recorded Pressure: Ao, HR=62, Condition=Condition 1 (Aorta) Ao 106/64/82 03:22 PM Time: 15:22 Heparin 5000 units Intravenous Given by Juan J Pedroza RN oparker 03:23 PM Catheter removed oparker 03:23 PM Wire removed oparker 03:24 PM 6Fr XB LAD 3.5 Hillister Bright-Tip guide catheter was used to cannulate the PCI vessel successfully. reused? No oparker 03:24 PM .014 BMW Warren 190cm guide wire across target lesion- successful. reused? No oparker 03:24 PM HR=65 bpm, CATW=133/83 mmhg, SpO2=95.0 %, Resp=18 B/min 03:26 PM Recorded Pressure: Ao, HR=65, Condition=Condition 1 (Aorta) Ao 95/58/73 03:28 PM 2nd .014 BMW Warren 190cm guide wire across target lesion- successful. reused? No oparker 03:30 PM Time: 15:30 Nitroglycerin 150 mcg Intracoronary Given by Patricia Robertson MD 03:30 PM HR=69 bpm, HDPI=714/68 mmhg, SpO2=94.0 %, Resp=14 B/min, Comment=SR 03:31 PM 2.0 mm x 12 mm Emerge Monorail balloon across target lesion- successful. reused? No oparker 03:31 PM Recorded Pressure: Ao, HR=70, Condition=Condition 1 (Aorta) Ao 93/61/76 03:33 PM Time: 15:23 Aggrastat Bolus: 19.5 ml Intravenous Given by Juan J Pedroza RN Acosta pump oparker 03:34 PM Time: 15:28 Aggrastat 12.5mg/250ml 54 ml Intravenous Given by Juan J Pedroza RN Acosta pump oparker 03:34 PM Recorded Pressure: Ao, HR=67, Condition=Condition 1 (Aorta) Ao 97/63/79 03:34 PM HR=65 bpm, MDYD=896/78 mmhg, SpO2=94.0 %, Resp=17 B/min, Comment=SR 03:36 PM Time: 15:21LOC: 4 = Oriented but drowsy oparker 03:37 PM Time: 15:21 Patient comfortable and pain free: Yes oparker 03:38 PM Lesion found in Mid LAD. Pre Stenosis: 80 Pre ALL Flow: 2: Partial Flow/Perfusion (> 1 but < 3) oparker 03:38 PM Mid/Distal Left Anterior Descending Coronary Artery and diagonal branches with 80% stenosis. If graft is supplying this area, 0 % stenosis oparker 03:39 PM HR=63 bpm, UQIY=428/82 mmhg, SpO2=95.0 %, Resp=16 B/min, Comment=SR 03:40 PM Recorded Pressure: Ao, HR=68, Condition=Condition 1 (Aorta) Ao 91/56/72 03:42 PM Balloon inflated @ 6 andi for 10 seconds oparker 03:42 PM Balloon inflated @ 8 andi for 7 seconds oparker 03:43 PM Balloon catheter removed intact. oparker 03:43 PM Recorded Pressure: Ao, HR=65, Condition=Condition 1 (Aorta) Ao 70/46/58 03:45 PM HR=63 bpm, NMDF=183/75 mmhg, SpO2=95.0 %, Resp=22 B/min, Comment=SR 03:46 PM 2.5 mm x 12 mm Emerge Monorail balloon across target lesion- successful. reused? No oparker 03:48 PM Balloon inflated @ 8 andi for 15 seconds oparker 03:48 PM Recorded Pressure: Ao, HR=66, Condition=Condition 1 (Aorta) Ao 87/51/67 03:49 PM HR=64 bpm, CRFR=733/80 mmhg, SpO2=95.0 %, Resp=11 B/min, Comment=SR 03:49 PM Balloon catheter removed intact. oparker 03:51 PM 3.5mm x 12mm Synergy drug-eluting stent across target lesion- successful Lot #[id number] oparker 03:52 PM Time: 15:37 Patient comfortable and pain free: Yes oparker 03:52 PM Time: 15:36LOC: 4 = Oriented but drowsy oparker 03:54 PM Stent deployed @ 6 andi for 5 seconds oparker 03:54 PM Stent balloon reinflated @ 11 andi for 7 seconds oparker 03:54 PM HR=64 bpm, VYGZ=067/79 mmhg, SpO2=95.0 %, Resp=19 B/min, Comment=SR 03:55 PM Stent balloon reinflated @ 14 andi for 10 seconds oparker 03:56 PM Time: 15:56 Nitroglycerin 200 mcg Intracoronary Given by Patricia Robertson MD oparker 03:56 PM Recorded Pressure: Ao, HR=66, Condition=Condition 1 (Aorta) Ao 84/45/62 03:57 PM Stent delivery system removed intact. oparker 03:59 PM Guide wire removed intact. oparker 03:59 PM 2nd Guide wire removed intact. oparker 03:59 PM Guide catheter removed intact. oparker 03:59 PM HR=72 bpm, IAXM=583/79 mmhg, SpO2=95.0 %, Resp=17 B/min, Comment=SR 04:00 PM Procedure completed at 16:00 04/17/2019 oparker 04:01 PM Sign out completed: Radiation Dose 643.39 mGy, 44.5 mGy/cm2 Fluoro Time: 15.6 Isovue 370 - 200ml contrast 158 ml given by Patricia Robertson MD. Complications: None. 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 Sedation minutes 54. Cardiac Rehab Consult needed: Yes. Confirmed administered medications: Yes oparker 04:01 PM Isovue 370 - 200ml,2 Bottle(s) used. oparker 04:01 PM Arterial sheath pulled, Angio-seal closure device used and was Successful [id number] S/N. oparker 04:01 PM Estimated Blood Loss: less than 20cc oparker 04:01 PM Post ECG NSR oparker 04:01 PM Post Blood Pressure 123/79 oparker 04:01 PM 16:01 Post Pulses Bilateral DP 2+ oparker 04:02 PM Information taught Cardiac Cath and Angioseal oparker 04:02 PM Did you address ALL flow and Dominance? YesCoronary Dominance: right oparker 04:02 PM Education needs Procedure, Plan of Care, and Disease Process oparker 04:02 PM Learning barriers :None oparker 04:02 PM Education Methods Verbal oparker 04:02 PM Education evaluation Able to repeat information oparker 04:04 PM HR=71 bpm, PYJD=913/87 mmhg, SpO2=97.0 %, Resp=14 B/min 04:06 PM Report given to Mary Anne LOPEZ Pt taken to 2A Room #16. 16:06 oparker 04:07 PM Time: 15:52LOC: 4 = Oriented but drowsy oparker 04:07 PM Time: 15:52 Patient comfortable and pain free: Yes oparker 04:07 PM Opsite applied oparker 04:07 PM Family placed in consult room. oparker 04:09 PM Lesion found in Right PDA. Pre Stenosis: 70 Pre ALL Flow: oparker 04:14 PM Patient out of room: 16:14 oparker 04:16 PM Site status No bleeding/hematoma - Rt Groin as reported by Roger Win RT (R) at 16:07 oparker Complications Complication None Hemodynamics Pressures Site Systolic/A Wave Diastolic/V Wave Mean AO 106 64 82 AO 95 58 73 AO 93 61 76 AO 97 63 79 AO 91 56 72 AO 70 46 58 AO 87 51 67 AO 84 45 62 Post Procedure Information Blood Pressure: 123/79 mmHg Rhythm: NSR Post procedural instructions were given Closure Device Time Device Success/Fail 04/17/2019 4:03:00 PM Angio-Seal VIP Successful Site Checks Time Location Status Staff Sheath In? Note 04:07 PM Rt Groin No bleeding/hematoma Roger Win RT (R) Pulses Time Site Pre-Procedure Post-Procedure Note Bilateral DP 2+ Bilateral radial 2+ 4:01:00 PM Bilateral DP 2+ Updated by James Sandy RN on 04/17/2019 4:17:48 PM electronically signed on 04/17/2019 4:18:31 PM with status of Final
[2019-04-18 03:26] LABS: Hematocrit 43.7 % (37.5-50.1); Hemoglobin 14.6 g/dL (12.9-16.9)
[2019-04-18 03:39] LABS: BUN/Creatinine Ratio 13 (6-26); Blood Urea Nitrogen 15 mg/dL (8-23); eGFR For African Americans > 60 (> 60); eGFR For Non-African Americans > 60 (> 60)
[2019-04-18 03:43] LABS: Troponin I 2.52 ng/mL (< 0.04)
[2019-04-18] MEDS: *HR* Heparin 5,000 UNIT/ML VIAL SQ SCH (05:56)
[2019-04-18 07:43] VITALS: BP 132/85
[2019-04-18] MEDS: Aspirin 81 MG TAB.CHEW PO SCH (08:11)
[2019-04-18] MEDS: *HR* Ticagrelor 90 MG TABLET PO SCH (08:11)
--- NOTE | 2019-04-18 10:06 | Discharge Summary ---
- NOTES TO OUTPATIENT PROVIDER Notes to Outpatient Provider: Admitted as STEMI Orders not resulted at time of discharge: Pending orders 04/15/19 07:22 ECG 12 lead ECG [ECG] Routine 04/16/19 07:00 ECG 12 lead ECG [ECG] Routine 04/16/19 08:31 CL Cardiac Catheterization [CL] Routine 04/17/19 09:50 CL Cardiac Catheterization [CL] Routine Date of Encounter: 04/18/19 Time of Encounter: 10:04 - Discharge Diagnosis (1) ST elevation myocardial infarction (STEMI) of inferior wall Priority: Primary Status: Acute Comments: Admitted was STEMI - Hospital Course Hospital course: Mr. Mora is a 58 year old male who was admitted to [facility] as STEMI. Patient was taken emergently to cath and lab and had JESSE placed RCA. Patient subsequently underwent staged PCI yesterday to LAD. Patient is on asa, brilinta, statin, BB. Educated on dual anti-platelet therapy uninterrupted for at least on year, states understanding. Brilinta assistance card given to patient. TTE with LVEF preserved, basal inferior wall hypokinesis noted. RIght groin access site with mild ecchymosis, no hematoma. Right groin access site management education reviewed with patient, states understanding. Patient is being prepped for discharge home in stable condition. All questions answered. Patient will follow with [facility], follow up set. ERX sent to pharmacy. - Time Spent with Patient Total time spent providing and/or coordinating discharge services: Less than 30 minutes - Discharge Medications Prescriptions: New Aspirin 81 mg PO DAILY #90 tab.chew Ticagrelor [Brilinta] 90 mg PO BID #60 tablet Atorvastatin [Lipitor] 80 mg PO HS #90 tablet Metoprolol [Lopressor] 25 mg PO BID #180 tablet Home Medications: Aspirin 81 mg PO DAILY #90 tab.chew 04/18/19 [Rx] Atorvastatin [Lipitor] 80 mg PO HS #90 tablet 04/18/19 [Rx] Metoprolol [Lopressor] 25 mg PO BID #180 tablet 04/18/19 [Rx] Ticagrelor [Brilinta] 90 mg PO BID #60 tablet 04/18/19 [Rx] Allergies/Adverse Reactions: Allergy/AdvReac Type Severity Reaction Status Date / Time Penicillins [PCN] Allergy Hives Verified 04/16/19 12:49 Date of admission: 04/15/19 07:33 Primary care physician: PCP NONE Consults: 04/15/19 07:22 Consult to Cardiac Rehabilitation-Phase1 [CONS] Routine Comment: Reason for Consult: AMI Call Completed: Yes Consult to Nurse Navigator [CONS] Routine Comment: 04/17/19 16:12 Consult to Cardiac Rehabilitation-Phase1 [CONS] Routine Comment: Reason for Consult: post op PCI Call Completed: Yes Discharging clinician: Radha Gatica Anticipated date of discharge: 04/18/19 Physical Examination Vital Signs, Last 4 Hours Temp Pulse Resp BP Pulse Ox 04/18/19 07:42 98.7 F 73 17 132/85 96 General: Conversant, No Apparent Distress HEENT: Atraumatic, Normocephaly, Mucus Membranes Moist Neck: No JVD, Normal carotid pulses Cardiac: Reg Rate and Rhythm, Normal S1 and S2, No Murmur Lungs: Normal Breath Sounds, No Wheeze, Rales, Rhonchi Neuro: Alert and responsive, No focal deficits noted Abdomen: Soft, Non-Tender Skin: No rashes noted on visualized skin, Other (Right groin access site with mild ecchymosis. ) Musculoskeletal: No Chest Wall Tenderness Extremities: No Clubbing, No Cyanosis, No Edema, Normal Pulses - Patient Status Disposition: Home, Self-Care Condition: Good Functional capacity at discharge: independent ambulation Overall status at discharge: patient is progressing back to baseline - Discharge Instructions Follow Up With: NONE,PCP [Primary Care Provider] - Additional Instructions: RISK FACTORS: STOP SMOKING: If you smoke, STOP. Smoking or tobacco use significantly increases your risk of heart disease because nicotine causes the arteries to narrow or constrict. It also causes fats to stick to the artery. Your chances of having a heart attack are greatly increased if you continue to smoke. For more information, call the education line for smoking cessation 2-912-OFDXJNI EAT A LOW FAT/CHOLESTEROL/SODIUM DIET: This diet may help reduce your chances of having a heart attack. LIFTING: Avoid lifting anything more than 10 pounds for 5-7 days Prior to straining, laughing, sneezing and/or coughing, apply manual pressure directly over insertion site. ACTIVITY: You may walk or climb stairs as tolerated You can resume sexual activity as tolerated In general, you are encouraged to engage in a minimum of 30 minutes or more of moderate intensity physical activity, such as brisk walking, daily or at least 3-4 times weekly BATHING Do not submerge the site into water (bath tub, hot tub, swimming pool) for 1 week. This can be a source for infection into the blood stream. You may shower after 24 hours SITE CARE: After 24 hours, you may remove the dressing and leave the site open to air. Keep the site clean and dry. Clean gently and pat dry. You can expect bruising and tenderness that gradually resolve within a week or two. Return to work as instructed per your physician Resume driving as instructed per physician Keep all scheduled follow up appointments Resume medications as instructed IMPORTANT: If prescribed a Platelet Aggregation Inhibitor such as, Plavix, Brilinta or Effient: Duration of therapy is minimum one year These medications are often used in combination with Aspirin in prevention of future heart attacks Never discontinue unless consult with your [employer] STROKE (CVA) Risk factors for a stroke are: Age, cigarette smoking, diabetes, excessive alcohol consumption, family history, high blood pressure, overweight, physical inactivity, prior stroke, heart attack, diagnosis of carotid artery stenosis or other artery disease. Warning signs: Sudden numbness or weakness of the face, arm or leg; especially on one side of the body, sudden confusion, trouble speaking or understanding, sudden trouble seeing in one or both eyes, sudden trouble walking, dizziness, loss of balance or coordination, sudden severe headache with no cause. Call 911 or go to the Emergency Room. CONGESTIVE HEART FAILURE: If you have been diagnosed with Congestive Heart Failure (CHF) and your symptoms return, make an appointment with your physician Weigh yourself daily. Notify your physician if you have a weight gain of two or more pounds in one day or five or more pounds in one week. If you experience any difficulty breathing, please call 911 BLEEDING: Although the risk of bleeding is minimal, it can happen. If you have any bleeding from the site, apply firm pressure above the puncture site for 10-15 minutes. If the bleeding does not stop, continue manual pressure and call 911 Contact your physician if: You develop a fever greater than 101 degrees Fahrenheit Your site becomes reddened or has any drainage You have an increase in pain or burning at the site or if a large knot forms at the site. If you experience chest pain, shortness of breath, dizziness, or extreme tiredness, stop the activity and rest. Please notify your physicians office if you experience any of these symptoms and they are not relieved by rest please call 911! - Diet and Activity Activity: increase activity as tolerated (Follow restrictions as above. ) Diet: low fat, low cholesterol, low salt diet
== END 2019-04-18 10:58 | disposition home or self-care (01) | DRG 247 ==
LOC: ICNU → OBSVTOIN 07:33 → 2ANU 04-16 22:54
PROVIDERS: ADMIT Internal Medicine Cardiovascular Disease; ATTEND Internal Medicine